=== PATIENT | male | born 1975 | race Caucasian/White ===

== ENCOUNTER 2022-03-09 08:06 | Day surgery (SDC) | payer BC ==
[2022-03-07 12:19] VITALS: BMI 23.6
[2022-03-09 08:19] VITALS: RESP 18
[2022-03-09 09:40] VITALS: TEMP 98
[2022-03-09 10:09] VITALS: BP 101/62; PULSE 51
== END 2022-03-09 10:45 | disposition home or self-care (01) ==
LOC: FASU-ENDO 08:06
PROVIDERS: ATTEND Internal Medicine Gastroenterology
PROC: 0DBP8ZX Excision of Rectum, Via Natural or Artificial Opening Endoscopic, Diagnostic (ICD-10-PCS; principal; 2022-03-09 09:20)
DX: Z12.11 Encounter for screening for malignant neoplasm of colon (principal); K62.1 Rectal polyp
CPT/HCPCS: 88305-TC